=== PATIENT | male | born 1945 | race Caucasian/White ===

== ENCOUNTER → 2018-10-10 07:49 | Day surgery (SDC) | payer OTHER ==
[~2018-10-10 07:49] MED LIST: Acetaminophen TAB* 325 MG PO PRN; Diazepam TAB(*) 5 MG ONE; Heparin 2 UNITS/ML IVPREMIX* 3,000 UNIT/1,500 ML BAG IV ONE; Heparin(*) 1000 UNIT/ML 10 ML VIAL CATH LAB IV ONE; Iohexol 350 (CONTRAST) 200 ML MDV IV ONE; Lidocaine 1% INJ* 10 MG/ML 30 ML SDV ONE; Midazolam* 1 MG/ML 5 ML VIAL (5 MG) ONE; NS 0.9% 1000 ML** 1,000 ML IV SCH; VERAPAMIL 2.5 MG/ML 2 ML VIAL ** 5 mg/2 ml ONE; diPHENhydraMINE PO* 25 MG ONE; fentaNYL* 50 MCG/ML 2 ML VIAL (100 MCG VIAL) ONE; nitroGLYCERIN DRIP* 25,000 MCG/250 ML BTL ONE
[2018-10-10 13:21] VITALS: BP 125/78
--- NOTE | 2018-10-10 22:04 | CATH ---
CC: Dr. Maxim Dupont; Dr. Mcclendon * CARDIAC CATHETERIZATION: DATE OF PROCEDURE: 10/10/18 - [facility] CATH INDICATION FOR PROCEDURE: Aortic stenosis, shortness of breath. The patient is a 73-year-old gentleman, who Dr. Dupont had seen in consultation for increasing shortness of breath and echocardiogram had shown moderate if not severe aortic stenosis. Cardiac catheterization was recommended. DESCRIPTION OF PROCEDURE: The patient was brought to the cardiac catheterization lab in a fasting state. Informed consent had been obtained prior to the procedure. All labs have been reviewed. The patient was placed supine on the catheterization table. His right radial and axillary areas were prepped and draped in the usual fashion. 1% lidocaine was used for local anesthesia. The axillary vein had an IV placed, which was quickly switched over to a 5-Djiboutian sheath introducer. The patient underwent a right heart catheterization using a 5-D[place]ib[place]ian [place] catheter. Multiple hemodynamics and oxygen saturation tracings were obtained. The radial artery on the right side was entered via a Seldinger technique and a guidewire was placed. Over the guide-wire, a 6-D[place]iboutian hydrophilic sheath was placed. Through the sheath, an infusion of heparin, verapamil and nitroglycerin was infused. The patient underwent coronary angiography and left ventriculography using a 6-D[place]iboutian TIG catheter and a 6-Djiboutian pigtail catheter. At the end of the procedure, all the sheaths and catheters were removed. The patient tolerated the procedure well. There were no complications. A total of 85 cc of Omnipaque dye was used. A total of 4.7 minutes of fluoro time was used. LEFT VENTRICULOGRAM: Left ventricle was normal in size and systolic function, estimated ejection fraction 60%. There was 1+ mitral regurgitation. The ascending aorta was normal. The aortic valve was calcified and restricted in its motion. HEMODYNAMICS: Right atrial pressure with a mean of 6. Right ventricular pressure 29/4 with an end-diastolic pressure of 8. Pulmonary capillary wedge pressure of 10. Pulmonary artery pressure 29/14 with a mean of 20. Central aortic blood pressure 112/60 with a mean of 84. Left ventricular pressure of 170/2 with an end- diastolic pressure of 12. Cardiac output by Gustavo 5.1 L per minute. Cardiac output by thermodilution 5.5 L per minute. Aortic valve area measured 0.8 cm sq and 0.4 per meter squared for body surface area. Oxygen saturation: Central aortic saturation 99%, pulmonary artery saturation 68%, right atrial saturation 63%. CORONARY ARTERIES: 1. Left main: The left main was normal in size. It bifurcated into the LAD and circumflex. There was no evidence of stenosis. 2. Left anterior descending artery: The LAD was normal in size. It gave off 1 large branching diagonal. The mid LAD had an eccentric 50% stenosis. The remainder of the LAD and diagonal vessels were without disease. 3. Left circumflex artery: The left circumflex artery was normal in size. It gave off 2 obtuse marginal branches. There was no evidence of stenosis. 4. Right coronary artery: The RCA was a large dominant vessel. It gave off a PDA. There was no evidence of stenosis. IMPRESSION: 1. Normal LV size and systolic function. 2. Severe aortic stenosis with a calculated valve area of 0.8 cm squared. 3. Normal pulmonary artery pressures. 4. 50% stenosis to the mid left anterior descending artery. The remainder of the circumflex artery and right coronary artery were without disease. 5. Successful radial artery catheterization. RECOMMENDATION: The patient will follow up with Dr. Dupont regarding his cardiac status and potential for aortic valve replacement. [id number] #: [id number] [facility]ITALJose L
== END | disposition home or self-care (01) ==
LOC: CHICATH 07:49
PROVIDERS: ATTEND Specialist
DX: I35.0 Nonrheumatic aortic (valve) stenosis (principal); R06.02 Shortness of breath; I25.10 Atherosclerotic heart disease of native coronary artery without angina pectoris; Z87.891 Personal history of nicotine dependence; R07.9 Chest pain, unspecified; R94.31 Abnormal electrocardiogram [ECG] [EKG]; J44.9 Chronic obstructive pulmonary disease, unspecified; I10 Essential (primary) hypertension; E78.5 Hyperlipidemia, unspecified; E66.8 Other obesity
CPT/HCPCS: 36415; 82803; 93460; 99156; 99157; A9270-GY; C1769; C1887; J1644; J2250; J3010